=== PATIENT | male | born 1995 | race Caucasian/White ===

== ENCOUNTER 2023-11-10 04:54 | Emergency (ER) | payer SELFPAY ==
[~2023-11-10] VITALS: Ht 172.7 cm; Wt 70.0 kg
[2023-11-10 05:08] VITALS: TEMP 98.2; O2SAT 98
[2023-11-10 05:48] VITALS: BP 107/80; PULSE 79; RESP 16
== END 2023-11-10 05:48 | disposition home or self-care (01) ==
LOC: ER 05:09
DX: R00.2 Palpitations (principal)
CPT/HCPCS: 93005; 99283